=== PATIENT | female | born 1990 | race Caucasian/White ===

== ENCOUNTER 2017-08-10 21:37 | Emergency (ER) | payer OTHER ==
[~2017-08-10] VITALS: Ht 165.1 cm; Wt 72.6 kg
[2017-08-10 21:50] VITALS: BP 147/100
[2017-08-10] MEDS ORDERED: PHENERGAN IM STA (22:24)
[2017-08-10] MEDS ORDERED: NUBAIN IM STA (22:24)
--- NOTE | 2017-08-10 22:29 | ER.PDOC ---
General Chief Complaint: Headache Stated Complaint: MIGRAINE Time seen by MD: 22:27 Source: patient Exam Limitations: no limitations History of Present Illness Initial Comments Headache today. She has had headaches intermittently for a long time. Severity/Quality: severe, sharp Prior Headaches/Recent Trauma: frequent headaches, chronic headaches Associated Symptoms: nausea/vomiting, sensitivity to light Prior symptoms/Treatment: Similar symptoms previous Allergies: Coded Allergies: No Known Allergies (Unverified , 08/10/17) Past Medical History Medical History: high cholesterol Surgical History: no surgical history LMP (females 10-50): 07/31 Social History Smoking: non-smoker Alcohol Use: none Drug Use: none Review of Systems Constitutional: no symptoms reported Eyes: see HPI Respiratory: no symptoms reported Cardiovascular: no symptoms reported Gastrointestinal: see HPI Genitourinary: no symptoms reported All Other Systems: Reviewed and Negative Physical Exam General Appearance: No Apparent Distress, WD/WN Head/Eyes: eyes nml inspection, no facial swelling, no nystagmus, PERRL Neck: nml inspection, Supple Cardiovascular: Normal Peripheral Pulses, Regular Rate, Rhythm, No Edema, No Gallop, No JVD, No Murmur Respiratory: chest non-tender, lungs clear, normal breath sounds, no respiratory distress, no accessory muscle use Gastrointestinal: Normal Bowel Sounds, No Organomegaly, No Pulsatile Mass, Non Tender, Soft Back: Normal Inspection, No CVA Tenderness, No Vertebral Tenderness Extremities: Normal Range of Motion, Non-Tender, Normal Inspection, No Pedal Edema, No Calf Tenderness, Normal Capillary Refill Cranial Nerves: Normal Hearing, Normal Speech, PERRL Motor/Sensory: No Motor Deficit, No Sensory Deficit, No Pronator Drift, Negative Babinski's Sign Skin: Warm/Dry, Normal Color Lymphatic: No Adenopathy Results/Orders Results/Orders Laboratory Tests Test 08/10/17 23:07 Influenza Virus Type A Antibody NEGATIVE (NEG) Influenza Virus Type B Antibody NEGATIVE (NEG) Group A Streptococcus Screen NEGATIVE (NEGATIVE) Administered Medications Medications (Trade) Dose Ordered Sig/Heber Route PRN Reason Start Time Stop Time Status Last Admin Dose Admin Nalbuphine HCl (Nubain) 10 mg STAT STAT IM 08/10/17 22:24 08/10/17 22:26 DC 08/10/17 22:37 Promethazine HCl (Phenergan) 25 mg STAT STAT IM 08/10/17 22:24 08/10/17 22:26 DC 08/10/17 22:38 EKG/XRAY/CT/US CT Comments: Normal CT head Departure Time of Disposition: 23:40 Disposition: 01 HOME, SELF-CARE Impression: Primary Impression: Migraine Qualified Codes: G43.911 - Migraine, unspecified, intractable, with status migrainosus Condition: Improved Referrals: [facility] (PCP) PRIMARY CARE PROVIDER Additional Instructions: Fioricet D/U with your PCP in 2-3 days Duration or Time Spent with Pa: 2 hours SHON,SERGEI Mosley MD Aug 10, 2017 22:29
[2017-08-10] MEDS ORDERED: NUBAIN ONE (22:30)
[2017-08-10] MEDS ORDERED: PHENERGAN ONE (22:30)
[2017-08-10 23:02] VITALS: BP 152/95
--- NOTE | 2017-08-10 23:14 | DIREP ---
PROCEDURE:CT HEAD OR BRAIN W/O CONTRAST COMPARISON:None. INDICATIONS:headache TECHNIQUE:Axial CT images were obtained from vertex to the skull base without the administration of IV contrast. FINDINGS: VENTRICLES: The ventricles are normal in size and configuration. No hydrocephalus. CEREBRUM: Normal cerebral morphology with appropriate cortez white matter differentiation. No intracranial hemorrhage, mass-effect, or midline shift. No CT evidence of acute infarction. CEREBELLUM: Normal. BRAINSTEM: Normal. BASAL CISTERNS: Normal. SKULL: Normal. No fracture. SINUSES: Normal. Visualized paranasal sinuses and mastoid air cells are clear. OTHER: None CONCLUSION: No acute intracranial abnormality. Dictated by: Jesus Arzola MD on 08/10/2017 at 11:12 PM
[2017-08-10 23:37] LABS: STREP SCREEN NEGATIVE (NEGATIVE)
[2017-08-10 23:40] VITALS: BP 139/92
[2017-08-10 23:51] VITALS: BP 139/92
== END 2017-08-10 23:51 | disposition home or self-care (01) ==
LOC: ER 21:37
DX: G43.909 Migraine, unspecified, not intractable, without status migrainosus (principal); E78.00 Pure hypercholesterolemia, unspecified
CPT/HCPCS: 70450; 86710; 87070; 87880; 96372 ×2; 99285; J2300; J2550; 99284